=== PATIENT | male | born 1935 | race Caucasian/White ===

== ENCOUNTER 2018-07-13 13:08 | Inpatient (IN) | payer OTHER, MEDICARE ==
[2018-07-13] VITALS (10 sets, daily range): BP systolic 133–180
[~2018-07-13] VITALS: Ht 185.4 cm; Wt 71.2 kg
[~2018-07-13 13:08] MED LIST: AZAT50TA18 PO; HYDR25TA4 PO; LACTIN PO; MESA400C PO; MESA4ENE4 RC; NAPR250T PO; NIAC500T2 PO; PERC10 PO; TAMS-11 PO
--- NOTE | 2018-07-13 13:15 | NUR ---
Patient is awake, alert, and oriented x2. Son is at bedside. Son reports that patient has been having difficulty breathing for 3-5 days. Patient presents with 2+ pitting edema to BLE, O2sat 92% on room air.
--- NOTE | 2018-07-13 13:15 | NUR ---
Placed in room 2. Placed on auto body customizer, blood pressure machine and pulse oximeter. To gown for exam. Side rails up. Report given to Cody NARANJO.
--- NOTE | 2018-07-13 13:18 | NUR ---
ER Dr. Angulo at bedside examining patient.
[2018-07-13 13:45] LABS: BASOPHILS # (AUTO) 0.1 K/uL (0.0-0.2); BASOPHILS % (AUTO) 0.4 % (0.0-2.0); EOSINOPHILS # (AUTO) 0.1 K/uL (0.0-0.4); EOSINOPHILS % (AUTO) 0.5 % (0.0-4.0); HEMATOCRIT 48.3 % (36-54); HEMOGLOBIN 15.5 g/dL (14.0-18.0); LYMPHOCYTES # (AUTO) 1.5 K/uL (1.0-5.5); LYMPHOCYTES % (AUTO) 12.3 % (20.5-51.5); MEAN CORPUSCULAR HEMOGLOBIN 27 pg (27-31); MEAN CORPUSCULAR HGB CONC 32 % (32-36); MEAN CORPUSCULAR VOLUME 85 fL (79.0-98.0); MONOCYTES % (AUTO) 8.6 % (1.7-9.3); NEUTROPHILS # (AUTO) 9.2 K/uL (1.8-7.7); NEUTROPHILS % (AUTO) 78.2 % (40.0-70.0); PLATELET COUNT (AUTO) 298 K/uL (130-430); RED BLOOD CELL COUNT(AUTO) 5.66 MIL/uL (4.2-6.2); RED CELL DISTRIBUTION WIDTH 16.6 % (9.0-15.0); WHITE BLOOD COUNT (AUTO) 11.8 K/uL (4.8-10.8)
[2018-07-13 13:57] LABS: ANION GAP 12 (5-15); CALCIUM 10.1 mg/dL (8.4-11.0); CHLORIDE 105 mmol/L (98-107); CREATININE 1.34 mg/dL (0.55-1.30); GLUCOSE 105 mg/dL (70-99); POTASSIUM 4.2 mmol/L (3.5-5.1); SODIUM SERUM 140 mmol/L (136-145); UREA NITROGEN, BLOOD 23 mg/dL (8-21)
[2018-07-13 14:03] LABS: ALANINE AMINOTRANSFERASE 25 U/L (12-78); ALBUMIN 3.6 g/dL (3.4-4.8); ASPARTATE AMINOTRANSFERASE 33 U/L (10-37); INR 1.1 (0.80-1.20); PROTHROMBIN TIME 11.2 SECS (9.5-12.5); TOTAL BILIRUBIN 1.5 mg/dL (0.0-1.0)
[2018-07-13] MEDS ORDERED: IOHEXOL 350 mgI/mL, 150 ML INFUS..BTL IV ONE (15:07)
--- NOTE | 2018-07-13 15:20 | NUR ---
Patient transported to radiology via wheelchair, accompanied by field contact technician.
--- NOTE | 2018-07-13 15:35 | NUR ---
Returned from radiology, back to [facility].
--- NOTE | 2018-07-13 16:17 | NUR ---
Medication reconciliation completed with information provided by patient's son. Any prior medication reconciliation on file was reviewed and corrected.
--- NOTE | 2018-07-13 16:32 | NUR ---
Patient will be admitted to care of Dr. Billings. Admitted to telemetry unit. Will go to room 112A. Belongings list completed. Summary report printed. Report will be given at bedside.
--- NOTE | 2018-07-13 16:44 | NUR ---
ADMISSION NOTE Received patient from ER via javed, received report from PUMA NARANJO. Patient admitted with diagnosis of . Patient oriented to hospital routine, call light, toileting and safety-patient verbalized understanding.
--- NOTE | 2018-07-13 16:45 | NUR ---
Patient transferred to room 112A via [facility], mobile monitor, RN, and EMT. Bedside report given to MARCELLA Corbin.
--- NOTE | 2018-07-13 17:00 | NUR ---
adm notes rec patient awake alert accompanied by son. with 02 at 2 liters via nasal cannula but still sat at 90% . dr garza was called for pt wheezing, elevated bp and unable to breath. awaiting to call back.
[2018-07-13] MEDS ORDERED: FUROSEMIDE 40 MG/4 ML VIAL IVP ONE ×2 (17:15→18:00)
--- NOTE | 2018-07-13 17:23 | NUR ---
rounds lasix ivp was given for wheezing at this time.
[2018-07-13] MEDS ORDERED: FUROSEMIDE 40 MG/4 ML VIAL ONE (17:28)
[2018-07-13] MEDS: ALBUTEROL SULFATE 0.083% 2.5 MG/3 ML VIAL.NEB INH PRN (17:31)
--- NOTE | 2018-07-13 17:42 | NUR ---
CONSULTATION PAGED/CALLED Reason for Consultation: CHF Person Who was Notified: SPOKE WITH CHIP FROM [employer]CHANGE Consulting Physician: Business Law Instructor Specialty: CARDIO Ordering Physician:
--- NOTE | 2018-07-13 17:55 | NUR ---
PAGED DR AYALA RE:ORDERS SPOKE WITH JENNY FROM DR. LUCY SHELDON
[2018-07-13] MEDS ORDERED: methylPREDNISolone SOD SUCC/PF 62.5 MG/ML VIAL IVP ONE (18:15)
--- NOTE | 2018-07-13 18:15 | NUR ---
transfer notes was transferred to icu after seen by dr waddell. dr garza called and spoke with dr waddell.
--- NOTE | 2018-07-13 18:20 | NUR ---
Patient received a/ox 3-4, denies pain, refusing Bipap at this time, placed on 4L via Nasal Cannula, O2 saturation 96% at this time, patient still having SOB, assessment complete, IV line to the left AC 18 G patent, no s/s of infiltration, patient family at bedside, updated with plan of care, they verbalized understanding, patient eating dinner, aspiration and fall precautions in place, educated patient and family quality control inspector heading light system, they verbalized understanding, bed in lowest position, three side rails up, bed alarm on, monitoring.
--- NOTE | 2018-07-13 18:40 | NUR ---
Mahad Benjamin order clarification for second dose of lasix 40mg IVP, will follow up as needed. Addendum: 07/13/18 at 1927 by Gibson Arce RN Second page to Dr. Benjamin regarding lasix order clarification. Addendum: 07/13/18 at 1930 by Gibson Arce RN Spoke with Dr. Cassidy almeida to hold lasix 40mg IVP x1 per orders, monitor breathing, if worse later then give, okay to give 2100 dose, informed Whit NARANJO.
--- NOTE | 2018-07-13 19:03 | NUR ---
Mahad Barr water resource consultant, regarding ABG. Addendum: 07/13/18 at 1905 by Gibson Arce RN Call back received, leave patient on 4L via Nasal Cannula.
--- NOTE | 2018-07-13 19:15 | NUR ---
PM SHIFT ASSESSMENT Pt is awake/alert but forgetful. Sons at bedside. Pt on 4L NC, tolerating well. Afib on the monitor. Skin warm and intact. IV18g to LAC, no signs of infiltration. Safety precautions in place, call light within reach. Will continue to monitor.
[2018-07-13] MEDS: PIPERACILLIN/TAZO 2.25G/DEX-IS 50 ML IV SCH (19:32)
[2018-07-13] MEDS: IPRATROPIUM/ALBUTEROL SULFATE 3 ML AMPUL.NEB (DUONEB) INH SCH ×2 (19:40→23:05)
--- NOTE | 2018-07-13 20:05 | NUR ---
CONDOM CATH Condom catheter placed on patient. 100ml of clear urine output in drainage bag. Pt tolerated procedure well. Will continue to monitor.
[2018-07-13] MEDS: FUROSEMIDE 40 MG/4 ML VIAL IVP SCH (21:41)
[2018-07-13] MEDS: methylPREDNISolone SOD SUCC/PF 62.5 MG/ML VIAL IVP SCH (21:42)
[2018-07-13] MEDS: HEPARIN SODIUM,PORCINE 5000 UNITS/ML VIAL SUBCUT SCH (21:44)
[2018-07-14] VITALS (20 sets, daily range): BP systolic 93–128
[2018-07-14] MEDS: PIPERACILLIN/TAZO 2.25G/DEX-IS 50 ML IV SCH ×5 (00:33→23:01)
[2018-07-14] MEDS: IPRATROPIUM/ALBUTEROL SULFATE 3 ML AMPUL.NEB (DUONEB) INH SCH ×6 (03:00→23:53)
[2018-07-14] MEDS: methylPREDNISolone SOD SUCC/PF 62.5 MG/ML VIAL IVP SCH (06:32)
[2018-07-14 06:47] LABS: BASOPHILS % (AUTO) 0.1 % (0.0-2.0); HEMATOCRIT 43.4 % (36-54); HEMOGLOBIN 14.1 g/dL (14.0-18.0); LYMPHOCYTES # (AUTO) 0.5 K/uL (1.0-5.5); LYMPHOCYTES % (AUTO) 7.4 % (20.5-51.5); MEAN CORPUSCULAR HEMOGLOBIN 27 pg (27-31); MEAN CORPUSCULAR HGB CONC 32 % (32-36); MEAN CORPUSCULAR VOLUME 84 fL (79.0-98.0); MONOCYTES # (AUTO) 0.1 K/uL (0.0-1.0); MONOCYTES % (AUTO) 1.7 % (1.7-9.3); NEUTROPHILS # (AUTO) 6.4 K/uL (1.8-7.7); NEUTROPHILS % (AUTO) 90.8 % (40.0-70.0); PLATELET COUNT (AUTO) 275 K/uL (130-430); RED BLOOD CELL COUNT(AUTO) 5.17 MIL/uL (4.2-6.2); RED CELL DISTRIBUTION WIDTH 16.3 % (9.0-15.0)
[2018-07-14 07:00] LABS: INR 1.2 (0.80-1.20); PROTHROMBIN TIME 11.7 SECS (9.5-12.5)
[2018-07-14 07:02] LABS: ANION GAP 11 (5-15); CHLORIDE 103 mmol/L (98-107); GLUCOSE 142 mg/dL (70-99); POTASSIUM 3.3 mmol/L (3.5-5.1); SODIUM SERUM 141 mmol/L (136-145)
[2018-07-14 07:03] LABS: CALCIUM 8.7 mg/dL (8.4-11.0); CREATININE 1.45 mg/dL (0.55-1.30); UREA NITROGEN, BLOOD 24 mg/dL (8-21)
--- NOTE | 2018-07-14 07:15 | NUR ---
Opening Note Received bedside report from endorsing RN for continuation of care. Received patient awake in bed, no signs or symptoms of acute distress noted. Patient notified of attempt to call . Bed locked in lowest position, bed alarm on, and call light within reach. Addendum: 07/14/18 at 0755 by Kiesha Krishnan RN Disregard attempt to call .
[2018-07-14 07:19] LABS: ALANINE AMINOTRANSFERASE 19 U/L (12-78); ASPARTATE AMINOTRANSFERASE 27 U/L (10-37); TOTAL BILIRUBIN 1.2 mg/dL (0.0-1.0)
[2018-07-14 07:26] LABS: CHOLESTEROL 117 mg/dL (<200); HDL CHOLESTEROL 38 mg/dL (>45); LDL CHOLESTEROL 75 mg/dL (<100); TRIGLYCERIDES 46 mg/dL (30-150)
--- NOTE | 2018-07-14 07:30 | NUR ---
Endorsement Pt care endorsed to MARCELLA Ross using nursing SBAR.
--- NOTE | 2018-07-14 07:40 | NUR ---
Nutrition Update Bebeto Scale 16 noted. Pt admitted for CHF. Diet: cardiac BMI: 22.6 kg/m2 RD to follow per nutrition care standards
[2018-07-14] MEDS ORDERED: POTASSIUM CHLORIDE 20 MEQ/PKT PACKET PO SCH (09:00)
[2018-07-14] MEDS: ASPIRIN 81 MG TAB.CHEW PO SCH (09:03)
[2018-07-14] MEDS: FUROSEMIDE 40 MG/4 ML VIAL IVP SCH ×2 (09:03→21:00)
[2018-07-14] MEDS: HEPARIN SODIUM,PORCINE 5000 UNITS/ML VIAL SUBCUT SCH ×2 (09:05→22:52)
[2018-07-14] MEDS: CARVEDILOL 3.125 MG TABLET (COREG) PO SCH ×2 (09:06→21:00)
--- NOTE | 2018-07-14 10:10 | NUR ---
Dr. Murguia at bedside examining patient and updating patient/family on plan of care. New orders received.
[2018-07-14] MEDS ORDERED: AMIODARONE HCL 200 MG TABLET PO ONE (12:00)
--- NOTE | 2018-07-14 13:30 | NUR ---
CHG bath performed and bed linens changed. No signs or symptoms of acute distress. Patient tolerated well. Bed locked in lowest position, bed alarm on, and call light within reach.
--- NOTE | 2018-07-14 13:40 | NUR ---
Condom Catheter Replaced Condom catheter found to be leaking. Replaced condom catheter and secured with tape and lock device. No signs of leaking. Patient tolerated well with minimal discomfort. No signs or symptoms of acute distress.
--- NOTE | 2018-07-14 13:45 | NUR ---
Dr. Benjamin paged for orders. Spoke with exchange. Waiting for call back.
--- NOTE | 2018-07-14 14:55 | NUR ---
Dr. Benjamin paged a second time for orders. Waiting for call back. Addendum: 07/14/18 at 1502 by Kiesha Krishnan RN Dr. Benjamin return call. New orders received.
--- NOTE | 2018-07-14 15:05 | NUR ---
Spoke with Dr. Billings for orders. Per Dr. Billings, patient is stable to transfer to telemetry unit. Patient will be monitored in ICU until telemetry bed and nurse becomes available.
[2018-07-14] MEDS: methylPREDNISolone SOD SUCC 40 MG/ML VIAL IVP SCH (18:07)
--- NOTE | 2018-07-14 19:15 | NUR ---
Transfer to [facility] Patient transferred to telemetry unit via hospital bed, continuous flat folding machine operator, and oxygen using ACLS protocol. Two ACLS RNs present at all times. No signs or symptoms of acute distress noted. Patient tolerated well. Endorsed bedside report to Yohana LIRIANO RN using SBAR approach for continuation of care. Addendum: 07/14/18 at 1937 by Kiesha Krishnan RN [address]
--- NOTE | 2018-07-14 20:17 | NUR ---
Opening notes Pt AAOx2, VSS, pt's daughter at bedside. Pt denies any pain or discomfort. L. AC 18 saline lock clear, patent. Encouraged pt to call for assistance, needs reinforcement. Pt close to nursing station for monitoring. Safety measures in place. Bed low, locked, alarm on.
[2018-07-14] MEDS ORDERED: AMIODARONE HCL 200 MG TABLET PO SCH ×2 (21:00)
--- NOTE | 2018-07-14 21:25 | NUR ---
Elevated Troponin Received from lab Trop 28.810. Paged Dr. Benjamin (Dr. Farrell fashion merchandiser). Received callback at 2907 and per MD don't call again for elevated Troponin. Pt denies any pain. No new orders received. David Figueroa aware.
--- NOTE | 2018-07-14 21:30 | NUR ---
PAGED PAGED DOCTOR SANTOS. REGARD CRITICAL VALUE
--- NOTE | 2018-07-14 21:48 | NUR ---
2ND PAGE PAGED DOCTOR SANTOS FOR CRITICAL LAB WHO IS [facility]ACILITY PSYCHIATRIST FOR DOCTOR PRICE
--- NOTE | 2018-07-14 22:50 | NUR ---
Rounds/med pass Pt alert, awake. Pt denies any pain or discomfort. Lasix/Coreg held at this time BP 92/61 HR 74. Call light within reach. Will continue to monitor pt.
--- NOTE | 2018-07-14 23:10 | NUR ---
Condom cath replaced Pt alert, awake. Condom cath fell off, replaced new one and secured. Skin prep applied and securement attached. Will continue to monitor.
[2018-07-15 00:18] VITALS: BP_SYST 134
[2018-07-15] MEDS: IPRATROPIUM/ALBUTEROL SULFATE 3 ML AMPUL.NEB (DUONEB) INH SCH ×4 (03:00→19:51)
--- NOTE | 2018-07-15 03:30 | NUR ---
Rounds Pt asleep, respiration even and unlabored. Call light within reach. Safety measures in place. Bed alarm on. To monitor.
--- NOTE | 2018-07-15 05:10 | NUR ---
EKG at bedside
[2018-07-15] MEDS: methylPREDNISolone SOD SUCC 40 MG/ML VIAL IVP SCH ×2 (05:52→18:09)
[2018-07-15] MEDS: PIPERACILLIN/TAZO 2.25G/DEX-IS 50 ML IV SCH ×3 (05:53→18:09)
--- NOTE | 2018-07-15 06:20 | NUR ---
Closing notes Pt asleep, easily arousable. No c/o pain or discomfort. IV antibiotic given L. AC 18G clear, patent. Condom cath in place. Safety measures in place. Bed low, locked, bed alarm on. To endorse to AM nurse.
[2018-07-15 06:50] LABS: HEMATOCRIT 43.5 % (36-54); HEMOGLOBIN 14.2 g/dL (14.0-18.0); LYMPHOCYTES # (AUTO) 0.8 K/uL (1.0-5.5); LYMPHOCYTES % (AUTO) 3.9 % (20.5-51.5); MEAN CORPUSCULAR HEMOGLOBIN 28 pg (27-31); MEAN CORPUSCULAR HGB CONC 33 % (32-36); MEAN CORPUSCULAR VOLUME 84 fL (79.0-98.0); MONOCYTES # (AUTO) 0.6 K/uL (0.0-1.0); MONOCYTES % (AUTO) 3.2 % (1.7-9.3); NEUTROPHILS # (AUTO) 18.3 K/uL (1.8-7.7); NEUTROPHILS % (AUTO) 92.9 % (40.0-70.0); PLATELET COUNT (AUTO) 265 K/uL (130-430); RED BLOOD CELL COUNT(AUTO) 5.15 MIL/uL (4.2-6.2); RED CELL DISTRIBUTION WIDTH 16.4 % (9.0-15.0)
[2018-07-15 07:03] LABS: WHITE BLOOD COUNT (AUTO) 19.7 K/uL (4.8-10.8)
[2018-07-15 07:05] LABS: ALANINE AMINOTRANSFERASE 18 U/L (12-78); ALBUMIN 2.9 g/dL (3.4-4.8); ANION GAP 10 (5-15); ASPARTATE AMINOTRANSFERASE 94 U/L (10-37); CALCIUM 8.3 mg/dL (8.4-11.0); CHLORIDE 102 mmol/L (98-107); CREATININE 1.73 mg/dL (0.55-1.30); GLUCOSE 151 mg/dL (70-99); POTASSIUM 3.1 mmol/L (3.5-5.1); SODIUM SERUM 136 mmol/L (136-145); UREA NITROGEN, BLOOD 35 mg/dL (8-21)
[2018-07-15 07:41] VITALS: BP_SYST 121
--- NOTE | 2018-07-15 07:45 | NUR ---
Initial note: Patient is awake, seem sleepiness, but able to answer his name. His son is at bedside. He is on Oxygen 4L/M via NC, no SOB. He has a condom catheter with clear yellow urine. Will continue monitor.
--- NOTE | 2018-07-15 08:28 | NUR ---
Critical lab result & Cardio round: Dot a call from Lab about Troponin elevated , and Dr. Benjamin is at the station . Makes him aware of the result. He has new orders.
[2018-07-15] MEDS: HEPARIN SODIUM,PORCINE 5000 UNITS/ML VIAL SUBCUT SCH (08:36)
[2018-07-15] MEDS: FUROSEMIDE 40 MG/4 ML VIAL IVP SCH ×2 (08:38→21:17)
[2018-07-15] MEDS: SPIRONOLACTONE 25 MG TABLET (ALDACTONE) PO SCH (08:39)
[2018-07-15] MEDS: ATORVASTATIN 20 MG TABLET PO SCH (08:39)
[2018-07-15] MEDS: POTASSIUM CHLORIDE 20 MEQ TAB.PRT.SR PO SCH ×2 (08:39→21:16)
[2018-07-15] MEDS: ASPIRIN 81 MG TAB.CHEW PO SCH (08:39)
[2018-07-15] MEDS: CARVEDILOL 6.25 MG TABLET (COREG) PO SCH ×2 (08:40→21:16)
--- NOTE | 2018-07-15 10:30 | NUR ---
RN round: Patient is resting on bed comfortable, denies any pain or discomfort, with his daughter and son at bedside.
[2018-07-15] MEDS ORDERED: COMMUNICATION ORDER XX ONE (10:45)
[2018-07-15] MEDS ORDERED: ENOXAPARIN SODIUM 60 MG/0.6 ML SYRINGE SUBCUT ONE (11:45)
[2018-07-15 12:44] VITALS: BP_SYST 104
--- NOTE | 2018-07-15 13:44 | NUR ---
New IV access: IV site was came out . Restart a new IV site on left forearm #20G . Patient tolerating well. Keep IV lock for medication and antibiotics.
[2018-07-15 15:58] VITALS: BP_SYST 99
--- NOTE | 2018-07-15 17:34 | NUR ---
RN round: Patient is sitting on bed having dinner with a daughter and a son at bed side, no sign of distress.
--- NOTE | 2018-07-15 18:34 | NUR ---
Closing note: Patient is stable , no sign of distress, on Oxygen 4 L/M via NC, no SOB, Resting well though the shift.
--- NOTE | 2018-07-15 19:35 | NUR ---
OPENING NOTE Late entry d/t patient care. Received patient awake, AOx2 to name and date of . He is in no sign of distress and presently son is visiting. IV to LFA is SL. Updated board. Bed is locked to lowest position, side rails up 2x, has air mattress, bed alarm on and instructed on use of call light.
[2018-07-15 20:00] VITALS: BP_SYST 114
[2018-07-15] MEDS ORDERED: ENOXAPARIN SODIUM 60 MG/0.6 ML SYRINGE SUBCUT SCH (21:00)
--- NOTE | 2018-07-15 21:40 | NUR ---
NOTES Administered due medications. Family at bedside. Educated on medications and side effects. Safety precautions in place. Will monitor.
[2018-07-15 23:30] VITALS: BP_SYST 99
[2018-07-16] MEDS: IPRATROPIUM/ALBUTEROL SULFATE 3 ML AMPUL.NEB (DUONEB) INH SCH ×3 (01:00→13:41)
--- NOTE | 2018-07-16 02:06 | NUR ---
NOTES Bed alarm sounded and patient was trying to get out of bed for use of urinal. He was oriented to room surroundings and provided with urinal. When he was done, he was cooperative and went back to sleep.
[2018-07-16] MEDS: PIPERACILLIN/TAZO 2.25G/DEX-IS 50 ML IV SCH ×5 (03:08→23:20)
--- NOTE | 2018-07-16 04:16 | NUR ---
NOTES Patient is awake, no sign of distress noted. He is presently calm. He asked for a sip of water and voided in urinal. No further needs.
[2018-07-16] MEDS: methylPREDNISolone SOD SUCC 40 MG/ML VIAL IVP SCH (06:22)
[2018-07-16 06:45] LABS: ANION GAP 9 (5-15); CHLORIDE 102 mmol/L (98-107); CREATININE 1.86 mg/dL (0.55-1.30); GLUCOSE 116 mg/dL (70-99); POTASSIUM 3.8 mmol/L (3.5-5.1); SODIUM SERUM 138 mmol/L (136-145); UREA NITROGEN, BLOOD 45 mg/dL (8-21)
[2018-07-16 06:48] LABS: HEMATOCRIT 44.7 % (36-54); HEMOGLOBIN 14.4 g/dL (14.0-18.0); LYMPHOCYTES # (AUTO) 0.7 K/uL (1.0-5.5); LYMPHOCYTES % (AUTO) 3.5 % (20.5-51.5); MEAN CORPUSCULAR HEMOGLOBIN 27 pg (27-31); MEAN CORPUSCULAR HGB CONC 32 % (32-36); MEAN CORPUSCULAR VOLUME 85 fL (79.0-98.0); MONOCYTES # (AUTO) 0.6 K/uL (0.0-1.0); MONOCYTES % (AUTO) 3.2 % (1.7-9.3); NEUTROPHILS # (AUTO) 17.6 K/uL (1.8-7.7); NEUTROPHILS % (AUTO) 93.3 % (40.0-70.0); PLATELET COUNT (AUTO) 264 K/uL (130-430); RED BLOOD CELL COUNT(AUTO) 5.28 MIL/uL (4.2-6.2); RED CELL DISTRIBUTION WIDTH 16.2 % (9.0-15.0); WHITE BLOOD COUNT (AUTO) 18.9 K/uL (4.8-10.8)
--- NOTE | 2018-07-16 06:50 | NUR ---
closing note Due medications given and patient tolerated. Patient was weighed. IV antibiotic infusing. Needs met throughout shift, will endorse care to day shift nurse.
[2018-07-16 06:57] LABS: ALANINE AMINOTRANSFERASE 20 U/L (12-78); ALBUMIN 2.8 g/dL (3.4-4.8); ASPARTATE AMINOTRANSFERASE 49 U/L (10-37); TOTAL BILIRUBIN 0.8 mg/dL (0.0-1.0)
--- NOTE | 2018-07-16 07:30 | NUR ---
OPENING NOTE: RECEIVED REPORT FROM NIGHT NURSE. PATIENT IS RESTING COMFORTABLY IN BED. NO S/S OF DISTRESS OR SOB. PATIENT IS AWAKE BUT CONFUSED. SON IS AT BEDSIDE. PATIENT ON 4 L NASAL CANNULA. CALL LIGHT IN REACH, BED IN LOWEST POSITION, AND WILL CONTINUE TO MONITOR.
[2018-07-16 08:00] VITALS: BP_SYST 103
[2018-07-16] MEDS: CLOPIDOGREL BISULFATE 75 MG TABLET PO SCH (08:55)
[2018-07-16] MEDS: POTASSIUM CHLORIDE 20 MEQ TAB.PRT.SR PO SCH ×2 (08:55→23:14)
[2018-07-16] MEDS: ASPIRIN 81 MG TAB.CHEW PO SCH (08:55)
[2018-07-16] MEDS: ATORVASTATIN 20 MG TABLET PO SCH (08:55)
[2018-07-16] MEDS: FUROSEMIDE 40 MG TABLET PO SCH (08:56)
[2018-07-16] MEDS: CARVEDILOL 6.25 MG TABLET (COREG) PO SCH ×2 (08:57→23:15)
[2018-07-16] MEDS: AMIODARONE HCL 200 MG TABLET PO SCH ×2 (08:57→23:16)
[2018-07-16] MEDS: SPIRONOLACTONE 25 MG TABLET (ALDACTONE) PO SCH (08:58)
[2018-07-16] MEDS: RIVAROXABAN 15 MG TABLET PO SCH ×2 (09:00→18:28)
[2018-07-16] MEDS ORDERED: PREDNISONE 20 MG TABLET PO SCH (09:00)
--- NOTE | 2018-07-16 12:00 | NUR ---
RN ROUNDS PATIENT IS RESTING COMFORTABLY IN BED. NO S/S OF DISTRESS OR SOB. PATIENT IS AWAKE BUT CONFUSED. SON IS AT BEDSIDE. NO NEEDS AT THIS TIME. CALL LIGHT IN REACH, BED IN LOWEST POSITION, AND WILL CONTINUE TO MONITOR.
--- NOTE | 2018-07-16 12:34 | NUR ---
DC PLANNING Spoke w pt & son Kota @ bedside, [facility] discussed w Dr Billings yest & plan for SNF. Are agreeable w [facility] SNF per recommendation from Dr Billings. [facility] spoke w someone from [facility] already & ok to fax pt info. [facility], fax [phone]. Addendum: 07/16/18 at 1338 by Chelo Powers RN [facility] going to [facility], when melissa'd.
[2018-07-16 12:43] VITALS: BP_SYST 103
--- NOTE | 2018-07-16 16:18 | NUR ---
ROUNDS T STABLE . NOT IN ACUTE DISTRESS. . DENIES ANY CHEST PAIN OR SOB. NEEDS ATTENDED. FAMILY AT BED SIDE. WILL CONTINUE TO MONITOR
--- NOTE | 2018-07-16 16:44 | NUR ---
Discharge Planning Patient's daughter, Sofia Perez [phone], phoned and left a voicemail message requesting a call back from Case Management about the plan for discharge tomorrow to [facility]. LOGGING EQUIPMENT OPERATOR phoned. Sofia would like to be notified when the order is written for discharge and would like to see if a family member could be here at the time of discharge.
[2018-07-16 16:51] VITALS: BP_SYST 110
[2018-07-16 17:34] VITALS: BP_SYST 110
--- NOTE | 2018-07-16 19:27 | NUR ---
CLOSING NOTE: PATIENT IS RESTING COMFORTABLY IN BED. NO S/S OF DISTRESS OR SOB. PATIENT IS AWAKE BUT CONFUSED. SON IS AT BEDSIDE. ALL NEEDS MET DURING SHIFT. CALL LIGHT IN REACH, BED IN LOWEST POSITION, AND WILL GIVE REPORT TO NIGHT NURSE.
--- NOTE | 2018-07-16 19:40 | NUR ---
OPENING NOTE Late entry d/t patient care. Received patient awake, AOx2 to name and date of . He is in no sign of distress. Son is visiting. IV to LFA is SL. Updated board. Bed is locked to lowest position, side rails up 2x, has air mattress, bed alarm on and instructed on use of call light.
[2018-07-16 20:00] VITALS: BP_SYST 104
[2018-07-16] MEDS: ALBUTEROL SULFATE 0.083% 2.5 MG/3 ML VIAL.NEB INH PRN ×2 (20:20→20:21)
[2018-07-17 00:30] VITALS: BP_SYST 131
[2018-07-17] MEDS: IPRATROPIUM/ALBUTEROL SULFATE 3 ML AMPUL.NEB (DUONEB) INH SCH ×2 (00:36→07:00)
--- NOTE | 2018-07-17 02:17 | NUR ---
NOTE Patient is awake, in no sign of distress, non labored breathing. Safety precautions in place and call light near.
--- NOTE | 2018-07-17 04:30 | NUR ---
NOTES Patient is up out of bed, for use of the toilet (bowel movement). He was assisted back to bed and again bed alarm is on and call light w/in reach.
[2018-07-17 06:23] LABS: BASOPHILS % (AUTO) 0.1 % (0.0-2.0); HEMATOCRIT 43.7 % (36-54); HEMOGLOBIN 13.9 g/dL (14.0-18.0); LYMPHOCYTES # (AUTO) 0.8 K/uL (1.0-5.5); LYMPHOCYTES % (AUTO) 4.4 % (20.5-51.5); MEAN CORPUSCULAR HEMOGLOBIN 27 pg (27-31); MEAN CORPUSCULAR HGB CONC 32 % (32-36); MEAN CORPUSCULAR VOLUME 85 fL (79.0-98.0); MONOCYTES % (AUTO) 5.7 % (1.7-9.3); NEUTROPHILS # (AUTO) 16.3 K/uL (1.8-7.7); NEUTROPHILS % (AUTO) 89.8 % (40.0-70.0); PLATELET COUNT (AUTO) 255 K/uL (130-430); RED BLOOD CELL COUNT(AUTO) 5.17 MIL/uL (4.2-6.2); RED CELL DISTRIBUTION WIDTH 15.9 % (9.0-15.0); WHITE BLOOD COUNT (AUTO) 18.2 K/uL (4.8-10.8)
[2018-07-17] MEDS: PIPERACILLIN/TAZO 2.25G/DEX-IS 50 ML IV SCH (06:27)
--- NOTE | 2018-07-17 06:30 | NUR ---
CLOSING NOTE Patient was given due antibiotic and tolerating. He was confused and reoriented to surroundings. Needs met throughout shift, will endorse to day shift nurse.
[2018-07-17 06:48] LABS: ANION GAP 9 (5-15); CALCIUM 7.8 mg/dL (8.4-11.0); CHLORIDE 103 mmol/L (98-107); GLUCOSE 104 mg/dL (70-99); POTASSIUM 3.7 mmol/L (3.5-5.1); SODIUM SERUM 140 mmol/L (136-145); UREA NITROGEN, BLOOD 52 mg/dL (8-21)
[2018-07-17 07:00] LABS: ALANINE AMINOTRANSFERASE 21 U/L (12-78); ALBUMIN 2.8 g/dL (3.4-4.8); ASPARTATE AMINOTRANSFERASE 27 U/L (10-37); TOTAL BILIRUBIN 0.8 mg/dL (0.0-1.0)
--- NOTE | 2018-07-17 07:10 | NUR ---
critical lab Jesse Abernathy from lab called to report critical troponin level of 9.2000. Will notify chronometer assembler.
--- NOTE | 2018-07-17 07:25 | NUR ---
critical lab - notified Dr. Benjamin at unit and was notified of critical result
[2018-07-17 08:00] VITALS: BP_SYST 109
--- NOTE | 2018-07-17 08:00 | NUR ---
Note Pt sitting up in bed with son Kota at bedside, eating his breakfast. No SOB/resp distress or pain/discomfort noted at this time. Tele unit attached and intact at this time. IV in left forearm intact and patent with IVF's at O. Dr Billings was at bedside at 0725am, spoke to pt and his son. Verbal discharge orders were given and questions/concerns were answered at this time. No needs noted at this time. Call light within reach.
[2018-07-17] MEDS ORDERED: cefTRIAXone 1 GM IVPB PREMIX 50 ML IV SCH (08:15)
[2018-07-17] MEDS: ASPIRIN 81 MG TAB.CHEW PO SCH (09:20)
[2018-07-17] MEDS: CLOPIDOGREL BISULFATE 75 MG TABLET PO SCH (09:20)
--- NOTE | 2018-07-17 09:38 | NUR ---
[place]URK[place] LINE ATTENDANT DR PRICE WAS CALLED, RE: CLARIFICATION OF MEDS, XARELTO AND PLAVIX, WHETHER TO GIVE BOTH OR NOT. SPOKE TO ANNA.
--- NOTE | 2018-07-17 09:39 | NUR ---
PT note Attempted to have patient participate with therapy; patient son refusing therapy at this time, nursing made aware.
--- NOTE | 2018-07-17 09:59 | NUR ---
Discharge Planning Received discharge to SNF order. Patient accepted to [facility] room 211A, p [phone] Arranged Medic 1 ambulance for 13:00, p [phone], BLS 2LO2 Stephany NARANJO notified Daughter, Sofia Perez notified, p [phone] Packet placed in nurses' station
--- NOTE | 2018-07-17 10:40 | NUR ---
Note MD not called for appt for CHF as [facility].
[2018-07-17 10:56] VITALS: BP_SYST 107
--- NOTE | 2018-07-17 12:00 | NUR ---
Note Dr Benjamin called back and clarification of Plavix and Xarelto PO done. Pt's son Kota has been at bedside all shift. Pt's tele unit was dc'd and returned to groundwater monitoring technician at this time. Report was given to AL at noon from [facility]. Call light within reach.
[2018-07-17] MEDS: RIVAROXABAN 15 MG TABLET PO SCH (12:38)
[2018-07-17] MEDS: CARVEDILOL 6.25 MG TABLET (COREG) PO SCH (12:39)
[2018-07-17] MEDS: AMIODARONE HCL 200 MG TABLET PO SCH (12:39)
[2018-07-17] MEDS: SPIRONOLACTONE 25 MG TABLET (ALDACTONE) PO SCH (12:39)
[2018-07-17] MEDS: POTASSIUM CHLORIDE 20 MEQ TAB.PRT.SR PO SCH (12:39)
[2018-07-17] MEDS: ATORVASTATIN 20 MG TABLET PO SCH (12:40)
[2018-07-17] MEDS: FUROSEMIDE 40 MG TABLET PO SCH (12:40)
[2018-07-17 12:41] VITALS: BP_SYST 104
--- NOTE | 2018-07-17 12:55 | NUR ---
Note Pt's daughter and son in law at bedside as well as son. Pt wants to wear street clothes on discharge to [facility]. Left Forearm IV was dc'd - site benign, no swelling/bleeding/redness or tenderness noted at this time. Pt stable, no SOB/resp distress or pain/discomfort noted at this time. Report was given to Sriram NARANJO at noon at [facility]. No needs noted at this time. Pt sat up in bed and ate his lunch. Pt refused most of his PO am medications this morning.
--- NOTE | 2018-07-17 13:05 | NUR ---
Note Pt off the floor via gurdeysi to [facility]. Pt's son and daughter took all pt's belongings. Checked side table and drawers for belongings. Pt stable, no needs noted. Tele unit was removed and returned to technical sales director.
== END 2018-07-17 13:05 | DRG 280 ==
LOC: SED 13:08 → STU 16:30 → SIC 18:33 → STU 07-14 18:49
PROVIDERS: ADMIT Internal Medicine Hospice and Palliative Medicine; ATTEND Internal Medicine Hospice and Palliative Medicine
DX: I21.9 Acute myocardial infarction, unspecified (principal); I50.43 Acute on chronic combined systolic (congestive) and diastolic (congestive) heart failure; J18.9 Pneumonia, unspecified organism; J96.01 Acute respiratory failure with hypoxia; N18.4 Chronic kidney disease, stage 4 (severe); I47.1 Supraventricular tachycardia; I25.10 Atherosclerotic heart disease of native coronary artery without angina pectoris; N40.0 Benign prostatic hyperplasia without lower urinary tract symptoms; I25.5 Ischemic cardiomyopathy; F03.90 Unspecified dementia, unspecified severity, without behavioral disturbance, psychotic disturbance, mood disturbance, and anxiety; I48.0 Paroxysmal atrial fibrillation; Z66 Do not resuscitate; T38.0X5A Adverse effect of glucocorticoids and synthetic analogues, initial encounter; Z87.891 Personal history of nicotine dependence; Z95.5 Presence of coronary angioplasty implant and graft; Y92.89 Other specified places as the place of occurrence of the external cause
CPT/HCPCS: 36415; 36600; 71045; 71260-TC; 80053; 80061; 82803-TC; 83605; 83880; 84484; 85025; 85379; 85610-TC; 85730-TC; 87040-TC; 87081; 93005; 93306; 94640; 94760; 97110-GP; 99285; G0378; J0696; J1030; J1644; J1650; J1940; J2543; J2930; J7050; J7512; J7613; J7620; Q9967

== ENCOUNTER 2018-08-27 11:12 | Emergency (ER) | payer OTHER, MEDICARE ==
[~2018-08-27] VITALS: Ht 185.4 cm; Wt 78.5 kg
[2018-08-27 11:18] VITALS: BP_SYST 101
[2018-08-27] MEDS ORDERED: NACL 0.9% 1,000 ML IV ONE (12:08)
[2018-08-27 12:55] LABS: BILIRUBIN,URINE NEGATIVE (NEGATIVE); BLOOD, URINE NEGATIVE (NEGATIVE); CLARITY/URINE CLEAR (CLEAR); COLOR,URINE YELLOW (YELLOW); GLUCOSE,URINE NEGATIVE (NEGATIVE); KETONES,URINE NEGATIVE (NEGATIVE); LEUKOCYTE ESTERASE ,URINE NEGATIVE (NEGATIVE); NITRITE, URINE NEGATIVE (NEGATIVE); PROTEIN URINE NEGATIVE (NEGATIVE); UROBILINOGEN,URINE 0.2 (0.2-1.0)
[2018-08-27] MEDS ORDERED: AMIO200T4 PO (13:09)
[2018-08-27] MEDS ORDERED: ASA81 PO (13:09)
[2018-08-27] MEDS ORDERED: CARV6.2554 PO (13:09)
[2018-08-27] MEDS ORDERED: ATOR20TA64 PO (13:09)
[2018-08-27] MEDS ORDERED: ACET325T53 PO (13:09)
[2018-08-27] MEDS ORDERED: DOCU-144 PO (13:09)
[2018-08-27] MEDS ORDERED: ALBU1.257 IH (13:09)
[2018-08-27 13:11] LABS: BASOPHILS # (AUTO) 0.1 K/uL (0.0-0.2); BASOPHILS % (AUTO) 0.5 % (0.0-2.0); EOSINOPHILS # (AUTO) 0.2 K/uL (0.0-0.4); EOSINOPHILS % (AUTO) 1.4 % (0.0-4.0); HEMATOCRIT 43.1 % (36-54); LYMPHOCYTES # (AUTO) 2.1 K/uL (1.0-5.5); LYMPHOCYTES % (AUTO) 18.9 % (20.5-51.5); MEAN CORPUSCULAR HEMOGLOBIN 27 pg (27-31); MEAN CORPUSCULAR HGB CONC 33 % (32-36); MEAN CORPUSCULAR VOLUME 84 fL (79.0-98.0); NEUTROPHILS % (AUTO) 70.2 % (40.0-70.0); PLATELET COUNT (AUTO) 211 K/uL (130-430); RED BLOOD CELL COUNT(AUTO) 5.11 MIL/uL (4.2-6.2); RED CELL DISTRIBUTION WIDTH 18.4 % (9.0-15.0); WHITE BLOOD COUNT (AUTO) 11.4 K/uL (4.8-10.8)
[2018-08-27 13:29] LABS: ALANINE AMINOTRANSFERASE 14 U/L (12-78); ALBUMIN 3.6 g/dL (3.4-4.8); ASPARTATE AMINOTRANSFERASE 19 U/L (10-37); CHLORIDE 103 mmol/L (98-107); CREATININE 2.13 mg/dL (0.55-1.30); GLUCOSE 90 mg/dL (70-99); POTASSIUM 4.7 mmol/L (3.5-5.1); SODIUM SERUM 138 mmol/L (136-145); TOTAL BILIRUBIN 0.5 mg/dL (0.0-1.0); UREA NITROGEN, BLOOD 36 mg/dL (8-21)
[2018-08-27 13:37] LABS: ANION GAP 7 (5-15)
[2018-08-27 13:56] VITALS: BP_SYST 136
== END 2018-08-27 13:56 | disposition home or self-care (01) ==
LOC: SED 11:12
DX: E86.0 Dehydration (principal); I11.0 Hypertensive heart disease with heart failure; I50.9 Heart failure, unspecified; I25.2 Old myocardial infarction; Z86.79 Personal history of other diseases of the circulatory system; Z88.8 Allergy status to other drugs, medicaments and biological substances; Z79.82 Long term (current) use of aspirin; Z79.899 Other long term (current) drug therapy
CPT/HCPCS: 36415; 71045; 80053; 81003; 83605; 85025; 87040; 93005; 96360; 99284; J7030